=== PATIENT | male | born 2000 | race Caucasian/White ===

== ENCOUNTER 2020-08-21 16:53 | Emergency (ER) | payer OTHER, SELFPAY ==
[2020-08-21 16:53] VITALS: BP 153/77; PULSE 82; RESP 14; TEMP 36.2; O2SAT 98; BMI 27.2
--- NOTE | 2020-08-21 17:04 | ED_ITS ---
HPI - General Adult General Chief complaint: Abdominal Pain Stated complaint: RIGHT ABD PAIN Time Seen by Provider: 08/21/20 16:59 Source: patient Mode of arrival: Ambulatory Limitations: no limitations History of Present Illness HPI narrative: Patient is an otherwise healthy 20-year-old male here for evaluation of right-sided abdominal pain. He states the symptoms started yesterday and continued throughout the day. He went to better than last night and woke up again within this morning. He has not had any fevers. No nausea vomiting. No urinary symptoms. No diarrhea. No recent travel. No recent antibiotics. No prior abdominal surgeries. Has not tried anything for symptoms prior to arrival Related Data Allergies Allergy/AdvReac Type Severity Reaction Status Date / Time No Known Drug Allergies Allergy Verified 08/21/20 16:58 Review of Systems Constitutional Constitutional: Denies fever(s) and Denies headache(s) ENT Ears, Nose, Mouth, and Throat: Denies headache(s) Cardiovascular Cardiovascular: Denies chest pain and Denies dyspnea Respiratory Respiratory: Denies dyspnea Gastrointestinal Gastrointestinal: Reports abdominal pain, Denies melena, Denies hematochezia, Denies change in bowel habits, Denies constipation, Denies diarrhea, Denies nausea and Denies vomiting Genitourinary Genitourinary: Denies hematuria and Denies dysuria Genitourinary: Denies hematuria and Denies dysuria Musculoskeletal Musculoskeletal: Denies arthralgias and Denies myalgias Integumentary/Breasts Skin/Breast: Denies lesions and Denies rash Neurologic Neurologic: Denies behavioral changes and Denies headache(s) Psychiatric Psychiatric: Denies behavioral changes Hematologic/Lymphatic On Anticoagulants: No Allergic/Immunologic Allergic/Immunologic: Denies urticaria Patient History Medical History Healthy adult Social History Smoking Status: Unknown if ever smoked Smoking Status: Unknown if ever smoked alcohol intake frequency: holidays/special occasions only Substance Use Type: does not use Exam Initial Vital Signs Initial Vital Signs: Vital Signs Temperature 97.1 F L 08/21/20 16:53 Pulse Rate 82 08/21/20 16:53 Respiratory Rate 14 08/21/20 16:53 Blood Pressure 153/77 H 08/21/20 16:53 Pulse Oximetry 98 08/21/20 16:53 Const General: cooperative and comfortable Limitations: mental status not altered HENMT Head: normal to inspection and normocephalic Resp Effort & Inspection: normal respiratory effort Cardio Rate: regular rate Rhythm: regular rhythm GI Inspection: non-distended Palpation: No firm and No tender Back/Spine/Pelvis Back: No CVA tenderness Skin Lesions: no lesions Rashes: no rashes Neuro General: patient alert and patient awake Cognition: normal cognition Speech: speech normal Extrem General: capillary refill normal Psych Appearance: grossly normal and well kempt Course Orders Ordered: ED Orders 08/21/20 16:59 Partial Thromboplastin Time Stat Prothrombin Time INR Stat 08/21/20 17:05 CT abdomen pelvis w con Stat 08/21/20 17:13 Complete Blood Count AUTO DIFF Stat Comprehensive Metabolic Panel Stat Lipase Stat Discontinued Medications Sodium Chloride (Normal Saline 0.9%) 1,000 mls @ 1,000 mls/hr IV BOLUS ONE Stop: 08/21/20 18:04 Last Admin: 08/21/20 18:09 Dose: 1,000 mls/hr Documented by: SANDRA Vital Signs Vital signs: Vital Signs - 8 hr 08/21/20 16:53 Temperature 97.1 F L Pulse Rate 82 Respiratory Rate 14 Blood Pressure 153/77 H Pulse Oximetry 98 Medical Decision Making Lab Data Lab results reviewed: Yes I reviewed the patient's lab results. Result diagrams: 08/21/20 17:13 08/21/20 17:13 Labs: Lab Results 08/21/20 08/21/20 Range/Units 17:13 17:13 WBC 4.7 (4.5-11.0) X10^3/uL RBC 4.41 L (4.5-5.9) X10^6/uL Hgb 13.1 L (13.5-17.5) g/dL Hct 38.1 L (41-53) % MCV 86.3 (80-100) fL MCH 29.7 (26-34) PG MCHC 34.4 (30-36) % RDW 13.2 (11.6-14.8) % Plt Count 222 (150-400) X10^3/uL Neut % (Auto) 44.1 L (50-75) % Lymph % (Auto) 45.9 H (25-40) % [place] % (Auto) 9.1 (3-14) % Eos % (Auto) 0.6 L (2-4) % Baso % (Auto) 0.3 (0-2) % Neut # (Auto) 2100 (0196-3720) /uL Lymph # (Auto) 2200 (5605-0986) /uL [place] # (Auto) 400 (0-900) /uL Eos # (Auto) 0 (0-450) /uL Baso # (Auto) 0 (0-100) /uL Sodium 141 (137-145) mmol/L Potassium 3.8 (3.4-5.1) mmol/L Chloride 102 (98-107) mmol/L Carbon Dioxide 30 (22-32) mmol/L BUN 12 (9-20) mg/dL Creatinine 0.78 (0.66-1.25) mg/dL Estimated GFR > 60.0 (>60) mL/min BUN/Creatinine Ratio 15.4 (6-22) Glucose 74 (70-100) mg/dL Calcium 9.4 (8.4-10.2) mg/dL Total Bilirubin 0.3 (0.2-1.3) mg/dL AST 69 H (17-59) IU/L ALT 105 H (<50) IU/L Alkaline Phosphatase 54 (38-126) U/L Total Protein 7.9 (6.3-8.2) g/dL Albumin 4.6 (3.5-5.0) g/dL Globulin 3.3 (1.7-4.1) g/dL Albumin/Globulin Ratio 1.4 (1.0-2.8) Lipase 84 (23-300) U/L Urine Dip Bedside Urine Glucose Negative Bedside Urine Bilirubin - Negative Bedside Urine Ketone - Negative Urine Specific [place] 1.005 Bedside Urine Occult Blood - Negative Bedside Urine pH 7.0 Bedside Urine Protein - Negative Bedside Urine Urobilinogen - Negative Bedside Urine Nitrite - Negative Bedside Urine Leukocytes - Negative Esterase Point of care testing: Urine Dip Bedside Urine Glucose Negative Bedside Urine Bilirubin - Negative Bedside Urine Ketone - Negative Urine Specific [place] 1.005 Bedside Urine Occult Blood - Negative Bedside Urine pH 7.0 Bedside Urine Protein - Negative Bedside Urine Urobilinogen - Negative Bedside Urine Nitrite - Negative Bedside Urine Leukocytes - Negative Esterase Imaging Data CT scan - abdomen/pelvis: Radiologist's Impression: [address] [id number] Scan ReportSigned Patient: Carlos Alexander LMR#: [id number]: 2000Acct:[id number]/Sex: 20 / MDate of Service: 08/21/20Loc: EDAccession Number: [id number] Procedure: CT abdomen pelvis w con Ordering Provider: Benny Jonas D.O. PROCEDURE: CT ABDOMEN PELVIS W CON INDICATIONS: Right-sided abdominal pain eval for appy TECHNIQUE: After the administration of intravenous contrast, 5 mm thick sections acquired from the diaphragm to the symphysis. 5 mm coronal and sagittal reformats were acquired. For radiation dose reduction, the following was used: automated exposure control, adjustment of mA and/or kV according to patient size. COMPARISON: None. FINDINGS: Image quality: Excellent. ABDOMEN: Lung bases: Lung bases are clear. Heart size is normal. Solid organs: Liver is normal in size and enhancement. Gallbladder is largely collapsed at the time of this study. Biliary system is non dilated. Pancreas enhances normally. Spleen is normal in size and enhancement. No adrenal nodules. Kidneys demonstrate normal size and enhancement, without hydronephrosis. Peritoneum and bowel: In this patient with this given history, scrutiny is given to the appendix. The appendix can be seen medial to the cecum, as on series 4 images 27-29 and on series 2 images 53 through 58. No significant abnormality of the appendix is seen. There is mild wall thickening and inflammatory change seen involving the cecum and the ascending colon. Bowel loops otherwise demonstrate normal wall thickness and caliber. No free fluid or air. No abscess formation is seen. Nodes and vessels: No retroperitoneal or mesenteric adenopathy by size criteria. Aorta and inferior vena cava are normal in size. Miscellaneous: No ventral hernias. PELVIS: Genitourinary: Bladder wall thickness is normal. Miscellaneous: No inguinal hernias or adenopathy. Bones: No suspicious bony lesions. No vertebral body compression fractures. IMPRESSION: Normal appendix. Focal colitis seen involving the cecum and the ascending colon. No findings of perforation or abscess can be seen. Dictated by: rTino Dinh M.D. on 08/21/2020 at 16:32 Approved by: Trino Dinh M.D. on 08/21/2020 at 16:35 MDM Narrative Medical decision making narrative: Patient's labs are unremarkable and his CT scan does show a right-sided colitis. There is no signs of any bowel obstruction. No signs of appendicitis. No indication for antibiotics. No indication for surgical consultation. I did discuss this with him. I did inform him that he could potentially develop some diarrhea over the next couple days and if his symptoms worsen develops fevers or if they return that he needed to talk with his primary doctor for further evaluation. He expressed understanding and agreement. Discharge Plan Departure Patient Disposition: Home Clinical Impression: Colitis Instructions: DI for Abdominal Pain-Adult, DI for Colitis Activity Restrictions/Additional Instructions: Recommend that you contact your primary provider for follow-up. There is a potential that she developed diarrhea over the next day or so. Increase your fluid intake that this happens. Return to the emergency department for any new or worsening symptoms.
[2020-08-21 17:32] LABS: Add Manual Diff / Slide Review NO; Basophils Absolute Auto 0 /uL (0-100); Basophils Percent Auto 0.3 % (0-2); Eosinophils Absolute Auto 0 /uL (0-450); Eosinophils Percent Auto 0.6 % (2-4); Hematocrit 38.1 % (41-53); Hemoglobin 13.1 g/dL (13.5-17.5); Lymphocytes Absolute Auto 2200 /uL (1100-4500); Lymphocytes Percent Auto 45.9 % (25-40); Mean Corpuscular HGB Conc 34.4 % (30-36); Mean Corpuscular Hemoglobin 29.7 PG (26-34); Mean Corpuscular Volume 86.3 fL (80-100); Monocytes Absolute Auto 400 /uL (0-900); Monocytes Percent Auto 9.1 % (3-14); Neutrophils Absolute Auto 2100 /uL (1500-7000); Neutrophils Percent Auto 44.1 % (50-75); Platelet Count 222 X10^3/uL (150-400); Red Blood Cell Count 4.41 X10^6/uL (4.5-5.9); Red Cell Distribution Width 13.2 % (11.6-14.8); White Blood Cell Count 4.7 X10^3/uL (4.5-11.0)
[2020-08-21 17:45] LABS: Alanine Aminotransferase 105 IU/L (<50); Albumin 4.6 g/dL (3.5-5.0); Albumin Globulin Ratio 1.4 (1.0-2.8); Alkaline Phosphatase 54 U/L (38-126); Aspartate Aminotransferase 69 IU/L (17-59); BUN Creatinine Ratio 15.4 (6-22); Bilirubin Total 0.3 mg/dL (0.2-1.3); Blood Urea Nitrogen 12 mg/dL (9-20); Calcium 9.4 mg/dL (8.4-10.2); Carbon Dioxide 30 mmol/L (22-32); Chloride 102 mmol/L (98-107); Estimated Glomerular Filt Rate > 60.0 mL/min (>60); Globulin 3.3 g/dL (1.7-4.1); Glucose 74 mg/dL (70-100); HEMOLYSIS 16 (0-50); Lipase 84 U/L (23-300); Potassium 3.8 mmol/L (3.4-5.1); Sodium 141 mmol/L (137-145); Total Protein 7.9 g/dL (6.3-8.2)
[2020-08-21] MEDS: SODIUM CHLORIDE 0.9% 1,000 ML 1000 ML IV (18:09)
[2020-08-21 18:38] VITALS: BP 137/53; PULSE 76; RESP 16; O2SAT 100
== END 2020-08-21 18:41 | disposition home or self-care (01) ==
PROVIDERS: Emergency Provider Emergency Medicine
DX: K52.9 Noninfective gastroenteritis and colitis, unspecified (principal)
CPT/HCPCS: 36415; 74177; 80053; 81003; 83690; 85025; 96360; 99284; Q9967